=== PATIENT | male | born 1985 | race American Indian/Alaskan Native ===

== ENCOUNTER 2017-02-11 22:39 | Emergency (ER) | payer OTHER ==
--- NOTE | 2017-02-12 02:53 | Cat Scan Report ---
FINAL REPORT EXAM: CT ABDOMEN PELVIS WO CON HISTORY: rectal pain hx of rectal abcess surgery COMPARISON: CT of the abdomen pelvis December 23, 2015. TECHNIQUE: Contiguous axial images were obtained. Additional sagittal and coronal reformatted images were obtained. FINDINGS: Mild wall thickening of the distal rectum which may relate to its decompressed state. There is patient motion artifact through the perirectal and perianal region. This somewhat limits evaluation. There is focal soft tissue thickening at the medial margin of the anterior left gluteal cheek. Area soft tissue thickening measures 2.0 x 1.0 centimeters in axial dimension. This is concerning for developing phlegmon. No drainable abscess at this time. Remaining bowel loops normal in caliber. No bowel obstruction. The appendix is normal in caliber. Mild linear atelectasis at the lung bases. No calcified gallstones or biliary dilatation. Liver, spleen, pancreas and adrenal glands are grossly unremarkable. No nephrolithiasis or hydronephrosis. Aorta and IVC normal in caliber. No distal ureteral urinary bladder calculi. Urinary bladder and prostate gland are grossly unremarkable. There few reactive inguinal lymph nodes. Lumbar vertebral body heights preserved. Bony pelvis is grossly intact. Focal soft tissue IMPRESSION: Thickening and skin thickening at the medial margin of the left gluteal cheek at the posterior left margin of the rectum and anal canal. Findings are concerning for developing phlegmon. No drainable abscess at this time. Mild wall thickening the rectum concerning for mild associated proctitis. No other gross acute findings.
[2017-02-12 02:54] LABS: Anion Gap 19 mmol/L; Blood Urea Nitrogen 18 mg/dL (9-20); Calcium 8.8 mg/dL (8.4-10.2); Carbon Dioxide 23 mmol/L (22-30); Chloride 102.7 mmol/L (98-107); Glucose 90 mg/dL (75-100); Potassium 3.8 mmol/L (3.6-5.0); Sodium 141 mmol/L (137-145)
[2017-02-12 03:02] LABS: Bacteria,Urine 1+ /HPF (Negative); Bilirubin,Urine NEG (Negative); Blood,Urine SM (Negative); Ketones,Urine NEG (Negative); Leukocyte Esterase,Urine NEG (Negative); Mucus,Urine 3+ /HPF; Nitrite,Urine NEG (Negative); Urobilinogen,Urine < 2.0 mg/dL (<2.0)
[2017-02-12 03:03] LABS: Hematocrit 44.8 % (35.5-45.6); Hemoglobin 14.6 gm/dl (11.8-15.2); Mean Corpuscular HGB Conc 33 % (32-34); Mean Corpuscular Hemoglobin 27 pg (28-32); Mean Corpuscular Volume 84 fl (84-94); Platelet Count 114 K/mm3 (140-440); Red Blood Count 5.35 M/mm3 (3.65-5.03); Red Cell Distribution Width 13.6 % (13.2-15.2)
[2017-02-12] MEDS ORDERED: NACL 0.9% 1000 ML 1,000 ML IV ONE (11:50)
[2017-02-12] MEDS ORDERED: ZOFRAN IV ONE (11:50)
--- NOTE | 2017-02-12 11:52 | Emergency Department Report ---
ED General Adult HPI - General Chief complaint: Rectal Pain Stated complaint: POSS RECTAL ABSCESS Time Seen by Provider: 02/12/17 11:40 Source: patient Mode of arrival: Ambulatory Limitations: No Limitations - History of Present Illness Initial comments: Patient is a 31-year-old male with a history of HIV presenting to the ER with rectal pain. Patient reports for the last 4 days he's had severe sharp rectal pain associated with fevers and nausea. Patient is noncompliant on his HARRT therapy, last CD4 count was last year. Patient reports he had a prior similar incident and found to have a perirectal abscess for which required surgery. Patient does engage in receptive anal intercourse last episode was a week ago, patient reports it was protected. Last bowel movement 3-4 days ago, which is normal for the patient. Otherwise no other complaints - Related Data Previous Rx's Medication Instructions Recorded Last Taken Type Amoxicillin/K Clav Tab [Augmentin 1 tab PO Q12HR #14 tab 02/12/17 Unknown Rx 875 mg] Doxycycline [Vibramycin CAP] 100 mg PO Q12HR #14 capsule 02/12/17 Unknown Rx HYDROcodone/APAP 5-325 [[place] 1 each PO Q4HR PRN #12 tablet 02/12/17 Unknown Rx 5-325 mg TAB] Ondansetron [Zofran Odt] 4 mg PO Q8HR #12 tab.rapdis 02/12/17 Unknown Rx Allergies Allergy/AdvReac Type Severity Reaction Status Date / Time No Known Allergies Allergy Verified 12/23/15 11:12 ED Review of Systems ROS: Stated complaint: POSS RECTAL ABSCESS Other details as noted in HPI Comment: All other systems reviewed and negative ED Past Medical Hx - Past Medical History Previous Medical History?: Yes Hx Hypertension: No Hx Heart Attack/AMI: No Hx Congestive Heart Failure: No Hx Diabetes: No Hx Pulmonary Embolism: Yes Hx Liver Disease: No Hx Renal Disease: No Hx Sickle Cell Disease: No Hx Seizures: No Hx Asthma: No Hx COPD: No Hx HIV: Yes Additional medical history: HIV positive, has not been able to get a ride to the health Department to get medications. Is on no HIV medications - Surgical History Past Surgical History?: Yes Hx Pacemaker: No Hx Internal Defibrillator: No Additional Surgical History: Surgeyr for rectal abcess 5-6 years ago - Social History Smoking Status: Current Every Day Smoker - Medications Home Medications: Home Medications Medication Instructions Recorded Confirmed Last Taken Type Amoxicillin/K Clav Tab [Augmentin 1 tab PO Q12HR #14 tab 02/12/17 Unknown Rx 875 mg] Doxycycline [Vibramycin CAP] 100 mg PO Q12HR #14 capsule 02/12/17 Unknown Rx HYDROcodone/APAP 5-325 [[place] 1 each PO Q4HR PRN #12 tablet 02/12/17 Unknown Rx 5-325 mg TAB] Ondansetron [Zofran Odt] 4 mg PO Q8HR #12 tab.rapdis 02/12/17 Unknown Rx ED Physical Exam - General Limitations: No Limitations General appearance: alert, in no apparent distress - Head Head exam: Present: atraumatic, normocephalic - Eye Eye exam: Present: normal appearance - ENT ENT exam: Present: mucous membranes moist - Neck Neck exam: Present: normal inspection - Respiratory Respiratory exam: Present: normal lung sounds bilaterally. Absent: respiratory distress - Cardiovascular Cardiovascular Exam: Present: regular rate, normal rhythm. Absent: systolic murmur, diastolic murmur, rubs, gallop - GI/Abdominal GI/Abdominal exam: Present: soft, normal bowel sounds - Rectal Rectal exam: Present: deferred, normal rectal tone, hemorrhoids (external), tenderness (severe tenderness, L buttock tenderness). Absent: black stool, bloody stool, fecal impaction - exam: Present: normal inspection. Absent: urethral discharge, scrotal swelling - Extremities Exam Extremities exam: Present: normal inspection - Back Exam Back exam: Present: normal inspection - Neurological Exam Neurological exam: Present: alert, oriented X3 - Psychiatric Psychiatric exam: Present: normal affect, normal mood - Skin Skin exam: Present: warm, dry, intact, normal color. Absent: rash ED Course Vital Signs 02/12/17 01:31 Temperature 98.8 F Pulse Rate 108 H Respiratory 18 Rate Blood Pressure 143/98 O2 Sat by Pulse 100 Oximetry ED Medical Decision Making - Lab Data Result diagrams: 02/12/17 02:04 02/12/17 02:04 - Radiology Data Radiology results: report reviewed CT abdomen and pelvis: CT abdomen and pelvis: Thickening and skating at the medial margin of the left gluteal cheek at the posterior left margin of the rectum and anal canal. Findings are concerning for developing phlegmon. No drainable abscess at this time. Mild wall thickening of the rectum concerning for mild associated proctitis. - Medical Decision Making Given patient's HIV status, non compliance and findings for proctitis and early phlegmon will treat for gonorrhea, chlamydia here in the ED and then patient to be discharged with Augmentin 875 BID x 7 days, Doxycycline 100 mg BID x 7 days Critical care attestation.: If time is entered above; I have spent that time in minutes in the direct care of this critically ill patient, excluding procedure time. ED Disposition Clinical Impression: Perirectal inflammation, Proctitis Disposition: TO HOME OR SELFCARE Is pt being admited?: No Condition: Stable Instructions: Cellulitis (ED), Proctitis (ED) Prescriptions: Amoxicillin/K Clav Tab [Augmentin 875 mg] 1 tab PO Q12HR #14 tab Doxycycline [Vibramycin CAP] 100 mg PO Q12HR #14 capsule HYDROcodone/APAP 5-325 [[place] 5-325 mg TAB] 1 each PO Q4HR PRN #12 tablet PRN Reason: Pain Ondansetron [Zofran Odt] 4 mg PO Q8HR #12 tab.rapdis Referrals: PRIMARY CARE, [Primary Care Provider] - 3-5 Days
[2017-02-12] MEDS ORDERED: ZOSYN/NS 4.5GM/100ML 4.5 GM/100 ML VIAL IV ONE (11:56)
[2017-02-12] MEDS ORDERED: ZITHROMAX PO ONE (12:00)
[2017-02-12] MEDS ORDERED: XYLOCAINE 1% MPF 5 mL INFILTRATI ONE (12:00)
[2017-02-12] MEDS ORDERED: ROCEPHIN IM ONE (12:00)
[2017-02-12] MEDS ORDERED: MORPHINE IV ONE (13:28)
[2017-02-12 16:33] VITALS: BP 125/83
== END 2017-02-12 16:10 | disposition home or self-care (01) ==
LOC: ED 22:39
DX: K62.89 Other specified diseases of anus and rectum (principal); F17.200 Nicotine dependence, unspecified, uncomplicated
CPT/HCPCS: 36415; 74176; 80048; 81001; 85027; 96365; 96372; 96375; 99284; J0696; J2270; J2405; J2543; J7030